=== PATIENT | female | born 1930 | race Caucasian/White ===

== ENCOUNTER 2018-08-17 12:09 | Inpatient (IN) | payer MEDICARE, BC, MEDICAID ==
[~2018-08-17] VITALS: Ht 160 cm; Wt 49.9 kg
--- NOTE | 2018-08-17 12:15 | NUR ---
PT BIBPA FROM SNF FOR INCREASING AGITATION, PT AAOX2-3, PT ON MONITOR, VSS, NAD NOTED, PENDING MD MILLER
[2018-08-17 12:36] LABS: NEUTROPHILS # (AUTO) 4.4 /CMM (1.8-8.9)
[2018-08-17 12:39] LABS: BASOPHILS % (AUTO) 0.7 % (0.0-2.0); EOSINOPHILS % (AUTO) 1.4 % (0.0-6.0); HEMATOCRIT 41 % (33-45); HEMOGLOBIN 13.7 g/dL (11.5-14.8); LYMPHOCYTES # (AUTO) 1.3 /CMM (0.8-4.8); LYMPHOCYTES % (AUTO) 20.1 % (20.0-44.0); MEAN CORPUSCULAR HGB CONC 34 g/dl (31.0-36.0); MEAN CORPUSCULAR VOLUME 86 fL (82-100); MONOCYTES # (AUTO) 0.6 /CMM (0.1-1.30); MONOCYTES % (AUTO) 9.3 % (2.0-12.0); NEUTROPHILS % (AUTO) 68.5 % (43.0-81.0); PLATELET COUNT (AUTO) 294 /CMM (150-450); RED BLOOD CELL COUNT(AUTO) 4.71 MIL/uL (4.0-5.2); WHITE BLOOD COUNT (AUTO) 6.4 K/uL (4.3-11.0)
[2018-08-17 12:41] LABS: CALCIUM, SERUM 8.8 mg/dL (8.5-10.1); CARBON DIOXIDE 31 mmol/L (21-32); CHLORIDE 106 mmol/L (98-107); GLUCOSE 86 mg/dL (74-106); SODIUM SERUM 144 mmol/L (136-145); UREA NITROGEN, BLOOD 15 mg/dL (7-18)
[2018-08-17 12:47] LABS: ALANINE AMINOTRANSFERASE 20 U/L (12-78); ALBUMIN 3.4 g/dL (3.4-5.0); ALCOHOL, BLOOD < 3 mg/dL (0-0); ALKALINE PHOSPHATASE 69 U/L (46-116); ASPARTATE AMINOTRANSFERASE 22 U/L (15-37); BILIRUBIN,DIRECT 0.1 mg/dL (0.0-0.2); BILIRUBIN,TOTAL 0.3 mg/dL (0.2-1.0); TOTAL PROTEIN, SERUM 7.3 g/dL (6.4-8.2)
[2018-08-17 12:48] LABS: ACETAMINOPHEN < 2 ug/ml (10-30); SALICYLATE 2.3 mg/dL (2.8-20.0)
--- NOTE | 2018-08-17 13:05 | NUR ---
JACK TAMP OPERATOR ART ETA 1 HR
[2018-08-17] MEDS ORDERED: ERGO500040 PO (13:52)
[2018-08-17] MEDS ORDERED: QUET25TA PO (13:56)
[2018-08-17] MEDS ORDERED: ACET325T53 PO (13:56)
[2018-08-17] MEDS ORDERED: AMIN30LI2 PO (13:56)
[2018-08-17] MEDS ORDERED: MULT-213 PO (13:56)
[2018-08-17] MEDS ORDERED: LACT1CAP69 PO (13:56)
[2018-08-17 14:50] LABS: APPEARANCE,URINE Clear (CLEAR); BILIRUBIN,URINE Negative (NEGATIVE); BLOOD, URINE Negative Ery/uL (NEGATIVE); COLOR,URINE Yellow (YELLOW); KETONES,URINE Negative (NEGATIVE); LEUKOCYTE ESTERASE ,URINE Trace (NEGATIVE); NITRITE, URINE Negative (NEGATIVE); PH,URINE 7.5 (5.0-8.0); PROTEIN,URINE Negative (NEGATIVE); UGLUCOSE Negative (NEGATIVE); UROBILINOGEN,URINE 0.2 EU/dL (0.2)
[2018-08-17 14:54] LABS: BACTERIA,URINE None seen /HPF (None Seen); SQUAMOUS EPITHELIAL CELL,UR Few /HPF (None Seen)
--- NOTE | 2018-08-17 15:03 | NUR ---
REPORT GIVEN TO OSEAS GENAO FOR NEELAM, PT WILL BE TRANSPORTED TO GPS
[2018-08-17] MEDS ORDERED: MAGNESIUM HYDROXIDE 30 ML UDC PO PRN (16:00)
[2018-08-17] MEDS ORDERED: MAG HYDROX/AL HYDROX/SIMETH 30 ML UDC PO PRN (16:00)
[2018-08-17] MEDS ORDERED: ACETAMINOPHEN 325 MG TABLET PO PRN ×2 (16:00→20:00)
--- NOTE | 2018-08-17 16:00 | NUR ---
GPS RN ADMITTING NOTE: PATIENT 87Y/O FEMALE ADMITTED FROM ER PRIOR FROM HOLIDAY MANNER PLACED ON 5150 HOLD FOR GD. PER HOLD PT PT TRYING RO STRIKE OTHERS,AGGRESSIVE AND OUTBURSTS OF ANGER. PT NON COMPLIANT WITH CARE. UPON FACE TO FACE ASSESSMENT PT A&OX1 , CONFUSED, DISORGANIZED, ANXIOUS . DR ORTIZ NOTIFIED WITH STANDING ORDER, DR JAZMYN GARCIA AWARE TO RECONCILED HOME MEDICATION. ALL BELONGINGS CHECKED FOR CONTRABAND. PT UNKEPT,DISHEVELED, SKIN CHECKED PLACED IN THE CHART. VSS.
[2018-08-17] MEDS ORDERED: Z GUARD REMEDY 2 OZ OINT TP PRN (19:00)
[2018-08-17 19:56] VITALS: BP 135/69
[2018-08-17] MEDS: LORAZEPAM 0.5 MG TABLET PO PRN (20:29)
[2018-08-18 07:20] LABS: CHOLESTEROL 173 mg/dL (<200); HDL CHOLESTEROL 49 mg/dL (40-60); LDL 112 mg/dL (0-99); TRIGLYCERIDES 94 mg/dL (30-150)
[2018-08-18 07:32] LABS: ALANINE AMINOTRANSFERASE 20 U/L (12-78); ALBUMIN 3.3 g/dL (3.4-5.0); ALKALINE PHOSPHATASE 69 U/L (46-116); ASPARTATE AMINOTRANSFERASE 22 U/L (15-37); BILIRUBIN,TOTAL 0.5 mg/dL (0.2-1.0); CARBON DIOXIDE 27 mmol/L (21-32); CHLORIDE 106 mmol/L (98-107); CREATININE 0.9 mg/dL (0.6-1.3); GLUCOSE 93 mg/dL (74-106); SODIUM SERUM 140 mmol/L (136-145); TOTAL PROTEIN, SERUM 7.2 g/dL (6.4-8.2); UREA NITROGEN, BLOOD 14 mg/dL (7-18)
[2018-08-18 08:00] VITALS: BP 127/63
[2018-08-18] MEDS: MULTIVIT W/MINERALS 1 TAB TABLET PO SCH (09:22)
[2018-08-18] MEDS: LACTOBACILLUS RHAMNOSUS GG 1 EACH CAP.SPRINK PO SCH ×2 (09:22→16:46)
[2018-08-18] MEDS: PROSOURCE / PROSTAT (PYXIS) 30 ML UDC PO SCH (09:23)
[2018-08-18] MEDS: LORAZEPAM 0.5 MG TABLET PO PRN (10:40)
--- NOTE | 2018-08-18 10:47 | NUR ---
GPS/RN-NOTES NOTED PATIENT WITH SCREAMING AND YELLING IN THE DAY ROOM, REDIRECTED AND REORIENTED PATIENT ATIVAN 0.5MG GIVEN PRN ORDER. ALL NEEDS ATTENDED And ANTICIPATED. WILL CONT. MONITORING Q15 MINS. FOR SAFETY AND BEHAVIOR.
--- NOTE | 2018-08-18 10:50 | NUR ---
WOUND CARE CONSULT: PT REFUSED SKIN ASSESSMENT AND NOTED TO BE AGITATED AND COMBATIVE AT TIMES. WILL SEE PT PT CONDITION PERMITS. DISCUSSED SKIN PROTECTION WITH NURSING STAFF. CURRENT ROGE SCORE IS 17.
[2018-08-18] MEDS ORDERED: Z GUARD REMEDY 2 OZ OINT TP PRN (11:00)
--- NOTE | 2018-08-18 12:03 | NUR ---
WOUND CARE CONSULT: PT PRESENTS WITH RASH TO PERINEUM, INNER BUTTOCKS AND THIGHS, PRESENT ON ADMISSION. RECOMMENDATIONS MADE FOR SKIN PROTECTION AND CARE. DISCUSSED WITH NURSING STAFF. PT PREVIOUSLY AGITATED AND COMBATIVE WHEN SKIN ASSESSMENT ATTEMPTED. RT LOWER LEG SKIN TEAR NOTED. RECOMMEND DPM CONSULT. DR STERLING NOTIFIED OF CONSULT REQUEST. WILL SEE PRN. PEREZ IN AGREEMENT WITH PLAN OF CARE. Addendum: 08/18/18 at 1205 by SARA PENN WNDNU Amended: Links added.
[2018-08-18] MEDS: DIVALPROEX SODIUM 125 MG CAP.SPRINK PO SCH ×2 (13:55→21:19)
--- NOTE | 2018-08-18 15:31 | NUR ---
Group Note: SW approached the pt to join the group but she stated that she wanted to remain in her room.
--- NOTE | 2018-08-18 15:37 | NUR ---
INNA contacted Eze ([phone]) from [facility] and inquired about the pt returning to their facility and she stated that there is a 7 day bed hold for the pt as of right now.
[2018-08-18 16:00] VITALS: BP 132/69
[2018-08-18] MEDS: CLOTRIMAZOLE 1% 15 GM TUBE TP SCH (16:48)
[2018-08-18] MEDS: Z GUARD REMEDY 2 OZ OINT TP SCH (16:48)
[2018-08-18 20:05] VITALS: BP 135/70
[2018-08-18] MEDS: QUETIAPINE FUMARATE 25 MG TABLET PO SCH (21:19)
[2018-08-19] MEDS: TEMAZEPAM 7.5 MG CAPSULE PO PRN ×2 (02:06→22:17)
[2018-08-19 08:00] VITALS: BP 110/64
[2018-08-19] MEDS: LACTOBACILLUS RHAMNOSUS GG 1 EACH CAP.SPRINK PO SCH ×2 (08:50→16:37)
[2018-08-19] MEDS: DIVALPROEX SODIUM 125 MG CAP.SPRINK PO SCH ×3 (08:50→20:22)
[2018-08-19] MEDS: MULTIVIT W/MINERALS 1 TAB TABLET PO SCH (09:06)
[2018-08-19] MEDS: Z GUARD REMEDY 2 OZ OINT TP SCH ×2 (09:07→16:34)
[2018-08-19] MEDS: CLOTRIMAZOLE 1% 15 GM TUBE TP SCH ×2 (09:07→16:34)
[2018-08-19] MEDS: NEOMY SULF/BACITRAC ZN/POLY 15 GM TUBE TP SCH (09:07)
[2018-08-19] MEDS: PROSOURCE / PROSTAT (PYXIS) 30 ML UDC PO SCH (09:38)
--- NOTE | 2018-08-19 15:40 | NUR ---
Group Note: SW prompted pt to attend group. Pt stated that she wanted to remain in her room.
[2018-08-19 16:00] VITALS: BP 148/95
--- NOTE | 2018-08-19 16:24 | NUR ---
INNA called pt's son, Mainor ([phone]), and discussed the initial discharge plan. He stated that he would like the pt to return to [facility]. INNA stated that she will keep him updated about the discharge and that will occur when the pt is more stable.
[2018-08-19 20:00] VITALS: BP 138/87
[2018-08-19] MEDS: LORAZEPAM 0.5 MG TABLET PO PRN ×2 (20:15→20:21)
[2018-08-19] MEDS: QUETIAPINE FUMARATE 25 MG TABLET PO SCH (22:01)
[2018-08-20 08:30] VITALS: BP 133/62
[2018-08-20] MEDS: DIVALPROEX SODIUM 125 MG CAP.SPRINK PO SCH ×2 (08:54→21:04)
[2018-08-20] MEDS: MULTIVIT W/MINERALS 1 TAB TABLET PO SCH (08:54)
[2018-08-20] MEDS: LACTOBACILLUS RHAMNOSUS GG 1 EACH CAP.SPRINK PO SCH ×2 (08:54→16:59)
[2018-08-20] MEDS: PROSOURCE / PROSTAT (PYXIS) 30 ML UDC PO SCH (08:55)
[2018-08-20] MEDS: NEOMY SULF/BACITRAC ZN/POLY 15 GM TUBE TP SCH (08:56)
[2018-08-20] MEDS: CLOTRIMAZOLE 1% 15 GM TUBE TP SCH ×2 (08:56→16:59)
[2018-08-20] MEDS: Z GUARD REMEDY 2 OZ OINT TP SCH ×2 (08:57→17:00)
--- NOTE | 2018-08-20 09:21 | NUR ---
Initial Discharge Plan: Pt currently resides at [facility] ([facility]) located at [address] [place] [id number]. Per pt's son and Eze ([phone]) at [facility], the pt will return to the facility. SW will work with the MD and the pt regarding appropriate discharge planning. SW will form a safe and proper discharge.
[2018-08-20 16:00] VITALS: BP 143/90
--- NOTE | 2018-08-20 16:00 | NUR ---
Group Note: SW approached the pt to join the group but she appeared to be in a manic mood and became angry. She stated that she did not want to leave her room or the sitter that was present in the room and asked the SW to leave.
[2018-08-20 20:00] VITALS: BP 148/86
[2018-08-20] MEDS: QUETIAPINE FUMARATE 25 MG TABLET PO SCH (21:04)
[2018-08-20] MEDS ORDERED: DIVALPROEX SODIUM 125 MG CAP.SPRINK PO SCH (22:00)
[2018-08-21] MEDS: LORAZEPAM 0.5 MG TABLET PO PRN ×2 (00:06→19:19)
[2018-08-21 08:00] VITALS: BP 124/85
[2018-08-21] MEDS: DIVALPROEX SODIUM 125 MG CAP.SPRINK PO SCH ×3 (08:47→20:20)
[2018-08-21] MEDS: LACTOBACILLUS RHAMNOSUS GG 1 EACH CAP.SPRINK PO SCH ×3 (08:47→16:54)
[2018-08-21] MEDS: MULTIVIT W/MINERALS 1 TAB TABLET PO SCH (08:47)
[2018-08-21] MEDS: PROSOURCE / PROSTAT (PYXIS) 30 ML UDC PO SCH (08:47)
[2018-08-21] MEDS: CLOTRIMAZOLE 1% 15 GM TUBE TP SCH ×2 (08:48→16:55)
[2018-08-21] MEDS: Z GUARD REMEDY 2 OZ OINT TP SCH ×2 (08:49→16:55)
[2018-08-21] MEDS: NEOMY SULF/BACITRAC ZN/POLY 15 GM TUBE TP SCH (08:49)
[2018-08-21 16:00] VITALS: BP 137/77
--- NOTE | 2018-08-21 19:20 | NUR ---
NOTED AGITATION, IRRITABILITY, LOUD VOICE, ATIVAN 0.5 MG TAB PO GIVEN.
[2018-08-21 20:00] VITALS: BP 136/71
--- NOTE | 2018-08-21 20:21 | NUR ---
DEPAKOTE 250 MG CAP PO GIVEN AT THIS TIME, PATIENT IS IN GOOD MOOD. DUE FOR 2199.
[2018-08-21] MEDS: QUETIAPINE FUMARATE 25 MG TABLET PO SCH (21:03)
[2018-08-21] MEDS: TEMAZEPAM 7.5 MG CAPSULE PO PRN (22:17)
[2018-08-22 08:00] VITALS: BP 119/98
[2018-08-22] MEDS: LACTOBACILLUS RHAMNOSUS GG 1 EACH CAP.SPRINK PO SCH ×2 (08:50→16:32)
[2018-08-22] MEDS: DIVALPROEX SODIUM 125 MG CAP.SPRINK PO SCH ×2 (08:50→21:09)
[2018-08-22] MEDS: MULTIVIT W/MINERALS 1 TAB TABLET PO SCH (08:51)
[2018-08-22] MEDS: PROSOURCE / PROSTAT (PYXIS) 30 ML UDC PO SCH (08:55)
[2018-08-22] MEDS: NEOMY SULF/BACITRAC ZN/POLY 15 GM TUBE TP SCH (09:01)
[2018-08-22] MEDS: CLOTRIMAZOLE 1% 15 GM TUBE TP SCH ×2 (09:01→16:34)
[2018-08-22] MEDS: Z GUARD REMEDY 2 OZ OINT TP SCH ×2 (09:02→16:39)
[2018-08-22 16:00] VITALS: BP 137/68
[2018-08-22] MEDS ORDERED: Z GUARD REMEDY 4 OZ OINT TP PRN (20:30)
[2018-08-22] MEDS: QUETIAPINE FUMARATE 25 MG TABLET PO SCH (21:09)
[2018-08-22 21:51] VITALS: BP 137/60
[2018-08-23] MEDS: ERGOCALCIFEROL (VITAMIN D 2) 50,000 UNIT CAPSULE PO SCH (00:03)
[2018-08-23] MEDS ORDERED: Z GUARD REMEDY 4 OZ OINT TP SCH (09:00)
[2018-08-23] MEDS: MULTIVIT W/MINERALS 1 TAB TABLET PO SCH (09:03)
[2018-08-23] MEDS: DIVALPROEX SODIUM 125 MG CAP.SPRINK PO SCH ×2 (09:03→21:03)
[2018-08-23] MEDS: LACTOBACILLUS RHAMNOSUS GG 1 EACH CAP.SPRINK PO SCH ×2 (09:03→17:10)
[2018-08-23] MEDS: PROSOURCE / PROSTAT (PYXIS) 30 ML UDC PO SCH (09:03)
[2018-08-23] MEDS: NEOMY SULF/BACITRAC ZN/POLY 15 GM TUBE TP SCH (09:03)
[2018-08-23] MEDS: CLOTRIMAZOLE 1% 15 GM TUBE TP SCH ×2 (09:04→17:10)
[2018-08-23] MEDS: Z GUARD REMEDY 2 OZ OINT TP SCH ×2 (09:04→17:10)
[2018-08-23 09:23] VITALS: BP 143/70
--- NOTE | 2018-08-23 14:15 | NUR ---
Group Note: SW encouraged the pt to participate in group but she stated that she did not want to.
[2018-08-23 16:00] VITALS: BP 117/76
[2018-08-23 20:55] VITALS: BP 159/48
[2018-08-23] MEDS: QUETIAPINE FUMARATE 25 MG TABLET PO SCH (21:03)
[2018-08-23] MEDS: LORAZEPAM 0.5 MG TABLET PO PRN (21:19)
[2018-08-23] MEDS: TEMAZEPAM 7.5 MG CAPSULE PO PRN (22:00)
[2018-08-23 22:30] VITALS: BP 142/87
[2018-08-24 07:03] LABS: BASOPHILS % (AUTO) 0.4 % (0.0-2.0); EOSINOPHILS % (AUTO) 1.9 % (0.0-6.0); HEMATOCRIT 40 % (33-45); HEMOGLOBIN 13.5 g/dL (11.5-14.8); LYMPHOCYTES # (AUTO) 1.4 /CMM (0.8-4.8); LYMPHOCYTES % (AUTO) 22.3 % (20.0-44.0); MEAN CORPUSCULAR HGB CONC 34 g/dl (31.0-36.0); MEAN CORPUSCULAR VOLUME 86 fL (82-100); MONOCYTES # (AUTO) 0.6 /CMM (0.1-1.30); MONOCYTES % (AUTO) 8.8 % (2.0-12.0); NEUTROPHILS # (AUTO) 4.2 /CMM (1.8-8.9); NEUTROPHILS % (AUTO) 66.6 % (43.0-81.0); PLATELET COUNT (AUTO) 269 /CMM (150-450); RED BLOOD CELL COUNT(AUTO) 4.69 MIL/uL (4.0-5.2); WHITE BLOOD COUNT (AUTO) 6.3 K/uL (4.3-11.0)
[2018-08-24 07:19] LABS: VALPROIC ACID 23 ug/mL (50-100)
[2018-08-24 07:27] LABS: ALANINE AMINOTRANSFERASE 16 U/L (12-78); ALKALINE PHOSPHATASE 66 U/L (46-116); ASPARTATE AMINOTRANSFERASE 17 U/L (15-37); BILIRUBIN,TOTAL 0.4 mg/dL (0.2-1.0); CARBON DIOXIDE 26 mmol/L (21-32); CHLORIDE 107 mmol/L (98-107); CREATININE 0.9 mg/dL (0.6-1.3); GLUCOSE 94 mg/dL (74-106); POTASSIUM 4.3 mmol/L (3.5-5.1); SODIUM SERUM 141 mmol/L (136-145); TOTAL PROTEIN, SERUM 7.2 g/dL (6.4-8.2); UREA NITROGEN, BLOOD 17 mg/dL (7-18)
[2018-08-24 08:00] VITALS: BP 106/76
[2018-08-24] MEDS ORDERED: DIVALPROEX SODIUM 125 MG CAP.SPRINK PO SCH (08:00)
[2018-08-24] MEDS: MULTIVIT W/MINERALS 1 TAB TABLET PO SCH (10:04)
[2018-08-24] MEDS: PROSOURCE / PROSTAT (PYXIS) 30 ML UDC PO SCH (10:04)
[2018-08-24] MEDS: LACTOBACILLUS RHAMNOSUS GG 1 EACH CAP.SPRINK PO SCH ×2 (10:04→17:22)
[2018-08-24] MEDS: Z GUARD REMEDY 2 OZ OINT TP SCH ×2 (10:05→17:21)
[2018-08-24] MEDS: CLOTRIMAZOLE 1% 15 GM TUBE TP SCH ×2 (10:05→17:22)
--- NOTE | 2018-08-24 10:30 | NUR ---
AMBLING ABOUT UNIT,CONFUSED,MED COMPLIANT,TAKES MEDS SLOWLY AND CRUSHED.
[2018-08-24] MEDS: DIVALPROEX SODIUM 125 MG CAP.SPRINK PO SCH ×3 (13:25→21:08)
[2018-08-24 16:00] VITALS: BP 132/85
--- NOTE | 2018-08-24 16:43 | NUR ---
NO CHESTER IN STATUS.
[2018-08-24] MEDS: NEOMY SULF/BACITRAC ZN/POLY 15 GM TUBE TP SCH (17:21)
[2018-08-24 20:00] VITALS: BP 157/84
[2018-08-24] MEDS: QUETIAPINE FUMARATE 25 MG TABLET PO SCH (21:09)
[2018-08-24] MEDS: TEMAZEPAM 7.5 MG CAPSULE PO PRN (21:43)
[2018-08-24 22:10] VITALS: BP 136/85
[2018-08-25 08:00] VITALS: BP 107/67
[2018-08-25] MEDS: LACTOBACILLUS RHAMNOSUS GG 1 EACH CAP.SPRINK PO SCH ×2 (09:00→16:26)
[2018-08-25] MEDS: PROSOURCE / PROSTAT (PYXIS) 30 ML UDC PO SCH (09:00)
[2018-08-25] MEDS: MULTIVIT W/MINERALS 1 TAB TABLET PO SCH (09:00)
[2018-08-25] MEDS: DIVALPROEX SODIUM 125 MG CAP.SPRINK PO SCH ×4 (09:00→21:13)
[2018-08-25] MEDS: Z GUARD REMEDY 2 OZ OINT TP SCH ×2 (09:01→16:18)
[2018-08-25] MEDS: NEOMY SULF/BACITRAC ZN/POLY 15 GM TUBE TP SCH (09:01)
[2018-08-25] MEDS: CLOTRIMAZOLE 1% 15 GM TUBE TP SCH ×2 (09:01→16:18)
--- NOTE | 2018-08-25 14:10 | NUR ---
Group Note: Pt was encouraged by the SW to join group but the pt stated that she does not need group.
--- NOTE | 2018-08-25 14:19 | NUR ---
INNA called pt's son, Mainor ([phone]), and left a voicemail stating that the pt is going to be discharged on Thursday back to [facility].
[2018-08-25 16:00] VITALS: BP 112/66
[2018-08-25 20:14] VITALS: BP 95/46
[2018-08-25] MEDS: QUETIAPINE FUMARATE 25 MG TABLET PO SCH (21:13)
[2018-08-25 22:30] VITALS: BP 102/65
[2018-08-25 23:00] VITALS: BP 104/66
[2018-08-26] MEDS: LORAZEPAM 0.5 MG TABLET PO PRN ×2 (00:34→23:38)
[2018-08-26 08:21] VITALS: BP 129/52
[2018-08-26] MEDS: MULTIVIT W/MINERALS 1 TAB TABLET PO SCH (08:25)
[2018-08-26] MEDS: LACTOBACILLUS RHAMNOSUS GG 1 EACH CAP.SPRINK PO SCH ×2 (08:25→16:13)
[2018-08-26] MEDS: DIVALPROEX SODIUM 125 MG CAP.SPRINK PO SCH ×4 (08:25→21:42)
[2018-08-26] MEDS: PROSOURCE / PROSTAT (PYXIS) 30 ML UDC PO SCH (08:26)
[2018-08-26] MEDS: Z GUARD REMEDY 2 OZ OINT TP SCH ×2 (08:34→16:14)
[2018-08-26] MEDS: CLOTRIMAZOLE 1% 15 GM TUBE TP SCH ×2 (08:34→16:14)
[2018-08-26] MEDS: NEOMY SULF/BACITRAC ZN/POLY 15 GM TUBE TP SCH (08:34)
--- NOTE | 2018-08-26 12:55 | NUR ---
INNA called pt's son, Mainor ([phone]), and informed him that the pt cannot return to [facility] the following day because [facility] has paused admissions and discharges due to her flu outbreak. Pts son stated that he does not want to move the pt to a sister facility and then move her back to [facility] because it could disrupt the pt.
--- NOTE | 2018-08-26 12:57 | NUR ---
INNA faxed a discharge referral to [facility] to the fax number: [phone].
[2018-08-26 16:23] VITALS: BP 139/75
[2018-08-26 20:00] VITALS: BP 154/96
--- NOTE | 2018-08-26 20:11 | NUR ---
GPS RN NOTES: PT. TRANSFER TO OVERFLOW IN MED SURG -2 /ROOM # 209 -B , IN STABLE CONDTION , NO ACUTE DISTRESS NOTED, REPORT GIVEN TO REGINALDO GENAO . AND PT. TRANSFER WITH CHART IESHA WESTBROOK WITH WNL, PT. CONTINUITY WITH CARE
[2018-08-26] MEDS: QUETIAPINE FUMARATE 25 MG TABLET PO SCH (21:42)
--- NOTE | 2018-08-27 06:30 | NUR ---
PATIENT AMBULATING AROUND ROOM FOLLOWED BY SITTER. RESPIRATIONS EVEN. DENIES ANY PAIN AT THIS TIME. DUE MEDS GIVEN WITH NO ASE NOTED. NEEDS ATTENDED. KEPT CLEAN, DRY, AND COMFORTABLE. SAFETY PRECAUTIONS AND COMFORT MEASURES IN PLACE. WILL GIVE REPORT TO DAY SHIFT FOR CONTINUITY OF CARE.
[2018-08-27] MEDS: LORAZEPAM 0.5 MG TABLET PO PRN (06:31)
[2018-08-27 06:46] LABS: BASOPHILS % (AUTO) 0.3 % (0.0-2.0); EOSINOPHILS % (AUTO) 1.2 % (0.0-6.0); HEMATOCRIT 38 % (33-45); HEMOGLOBIN 12.7 g/dL (11.5-14.8); LYMPHOCYTES # (AUTO) 1.2 /CMM (0.8-4.8); LYMPHOCYTES % (AUTO) 13.1 % (20.0-44.0); MEAN CORPUSCULAR HGB CONC 34 g/dl (31.0-36.0); MEAN CORPUSCULAR VOLUME 85 fL (82-100); MONOCYTES # (AUTO) 0.9 /CMM (0.1-1.30); MONOCYTES % (AUTO) 9.5 % (2.0-12.0); NEUTROPHILS % (AUTO) 75.9 % (43.0-81.0); PLATELET COUNT (AUTO) 292 /CMM (150-450); RED BLOOD CELL COUNT(AUTO) 4.43 MIL/uL (4.0-5.2); WHITE BLOOD COUNT (AUTO) 9.2 K/uL (4.3-11.0)
[2018-08-27 06:58] LABS: ALANINE AMINOTRANSFERASE 15 U/L (12-78); ALKALINE PHOSPHATASE 63 U/L (46-116); ASPARTATE AMINOTRANSFERASE 14 U/L (15-37); BILIRUBIN,TOTAL 0.3 mg/dL (0.2-1.0); CALCIUM, SERUM 8.6 mg/dL (8.5-10.1); CARBON DIOXIDE 29 mmol/L (21-32); CHLORIDE 104 mmol/L (98-107); GLUCOSE 89 mg/dL (74-106); POTASSIUM 4.2 mmol/L (3.5-5.1); SODIUM SERUM 140 mmol/L (136-145); TOTAL PROTEIN, SERUM 6.7 g/dL (6.4-8.2); UREA NITROGEN, BLOOD 29 mg/dL (7-18)
[2018-08-27] MEDS: LACTOBACILLUS RHAMNOSUS GG 1 EACH CAP.SPRINK PO SCH ×2 (08:36→17:19)
[2018-08-27] MEDS: MULTIVIT W/MINERALS 1 TAB TABLET PO SCH (08:36)
[2018-08-27] MEDS: DIVALPROEX SODIUM 125 MG CAP.SPRINK PO SCH ×4 (08:36→22:25)
[2018-08-27] MEDS: PROSOURCE / PROSTAT (PYXIS) 30 ML UDC PO SCH (08:36)
[2018-08-27] MEDS: CLOTRIMAZOLE 1% 15 GM TUBE TP SCH ×2 (08:37→17:19)
[2018-08-27] MEDS: Z GUARD REMEDY 2 OZ OINT TP SCH ×2 (08:38→17:19)
--- NOTE | 2018-08-27 08:55 | NUR ---
INNA called pt's son, Mainor ([phone]), and informed him that the pt has to be discharged today due to her being cleared for discharge. INNA stated that [facility] is accepting the pt back but the facility was put on hold for admissions by the [facility] Public [facility]. INNA explained that it is unclear when the facility will be able to accept pts back. INNA stated [facility] has accepted the pt and that the pt will be transferred back to [facility] when everything is clear. Pts son accepted the discharge and was provided with the address of the facility and the phone number.
--- NOTE | 2018-08-27 09:00 | NUR ---
RN-CO: Dr Mesa ordered to discontinue hold and discharge patient, noted.
[2018-08-27] MEDS: NEOMY SULF/BACITRAC ZN/POLY 15 GM TUBE TP SCH (11:54)
[2018-08-27 15:33] LABS: APPEARANCE,URINE CLOUDY (CLEAR); BILIRUBIN,URINE NEGATIVE (NEGATIVE); BLOOD, URINE TRACE Ery/uL (NEGATIVE); COLOR,URINE YELLOW (YELLOW); KETONES,URINE NEGATIVE (NEGATIVE); LEUKOCYTE ESTERASE ,URINE 2+ (NEGATIVE); NITRITE, URINE POSITIVE (NEGATIVE); PROTEIN,URINE TRACE mg/dl (NEGATIVE); UGLUCOSE NEGATIVE (NEGATIVE); UROBILINOGEN,URINE 0.2 EU/dL (0.2)
--- NOTE | 2018-08-27 16:26 | NUR ---
Discharge Note: Pt was discharged to [facility] ([facility]) located at [address] [place] [address] ([phone]). Pt was transported via ambulance at 5PM. Pts son, Mainor ([phone]), was made aware of this discharge. Upon discharge, the pt appeared to be in a manic mood and presented as distressed. Pt appeared to be confused. Pt denied both suicidal and homicidal ideation as well as auditory and visual hallucinations. Pt will be under the care of her psychiatrist, Dr. Mesa, located at [address] [address]; and her wood drilling machine operator, Dr. Ashton, located at [address] [place] [address]; . Addendum: 08/31/18 at 1234 by OCTAVIO KEITH PT WAS NOT DISCHARGED DUE TO AN UTI.
[2018-08-27 16:30] LABS: BACTERIA,URINE 3+ /HPF (None Seen); SQUAMOUS EPITHELIAL CELL,UR Few /HPF (None Seen); WBC,URINE 51-80 /HPF (0-3)
--- NOTE | 2018-08-27 17:36 | NUR ---
NOTIFIED ZAHEER PRAJAPATI REGARDING URINALYSIS RESULT.
--- NOTE | 2018-08-27 17:38 | NUR ---
NOTIFIED METER TESTER POLYPHASE FAISAL STOCK REGARDING URINALYSIS RESULT. Addendum: 08/27/18 at 2015 by LUCIEN ATKINSON RN DISREGARD ABOVE NOTES WRONG PATIENT
--- NOTE | 2018-08-27 17:41 | NUR ---
RN-CO: Per Dr Mesa, cancel discharge and continue hold. Patient noted with UTI. Needs to be treated in the hospital.
--- NOTE | 2018-08-27 19:10 | NUR ---
PATIENT TRANSFER TO ROOM [facility] IN STABLE CONDITION WITH SITTER. ALL BELONGINGS BROUGHT WITH THE PATIENT. Addendum: 08/27/18 at 2017 by LUCIEN ATKINSON RN PATIENT TRANSFER TO ROOM [facility] IN STABLE CONDITION WITH SITTER. ALL BELONGINGS BROUGHT WITH THE PATIENT. NEEDS ATTENDED AND ANTICIPATED. DENIES SI/HI. DENIES AUDITORY AND VISUAL HALLUCINATION
--- NOTE | 2018-08-27 19:15 | NUR ---
RN NOTES: TRANSFER BACK TO ROOM 218-1 FROM OVERFLOW OF MS-2 ROOM 209-B IN STABLE CONDITION. ALL BELONGINGS AND CHART BROUGHT IN WITH THE PATIENT. NEEDS ATTENDED AND ANTICIPATED. DENIES SI/HI. MONITOR Q 15 MINUTED FOR BEHAVIOR AND SAFETY. WILL CONTINUE TO MONITOR FOR SIGH OF HALLUCINATION, AGGRESSIVE BEHAVIOR AND AGITATION.FALL,SAFETY AND ASPIRATION BEHAVIOR OBSERVE.
[2018-08-27 20:00] VITALS: BP 156/80
--- NOTE | 2018-08-27 21:36 | NUR ---
RN NOTES: -DUE ANTIBIOTIC/PO DUE AT 2100, PATIENT STRONGLY REFUSED TO TAKE, WILL TRY TO OFFER AGAIN LATER. -AT 2130 TRIED TO OFFER MEDICATION AGAIN ALONG WITH OTHER MEDICATION, STILL SHE STRONGLY REFUSED, EXPLAINED TO HER SHE SAID SHE JUST WANT TO SLEEP, WILL TRY AGAIN ONCE SHE CALM DOWN.
[2018-08-27] MEDS: CEPHALEXIN MONOHYDRATE 500 MG CAPSULE PO SCH (22:24)
[2018-08-27] MEDS: QUETIAPINE FUMARATE 25 MG TABLET PO SCH (22:25)
--- NOTE | 2018-08-27 22:26 | NUR ---
RN NOTES: ABLE TO CONVINCE TO TAKE HER MEDICATION, SHE WAS ABLE TO SWALLOW, THEN SHE SPIT OUT SOME OF THEM, GIVEN APPLE JUICE AND AFTER SOMETIME, SHE CALM DOWN AND GO TO SLEEP, FALL,SAFETY AND ASPIRATION OBSERVED.
--- NOTE | 2018-08-27 22:44 | NUR ---
RN NOTES: ASSISTED TO THE BATHROOM 2X,NOTED WITH URINARY FREQUENCY SECONDARY TO HER INFECTION.CALLS AND NEEDS ATTENDED.
--- NOTE | 2018-08-27 23:04 | NUR ---
RN NOTES: KEPT ON CLOSE VISUAL CHECK, TRYING TO SLEEP NOW,BED LOW AND LOCKED.
[2018-08-28 08:00] VITALS: BP 158/55
[2018-08-28] MEDS: DIVALPROEX SODIUM 125 MG CAP.SPRINK PO SCH ×4 (09:09→21:05)
[2018-08-28] MEDS: LACTOBACILLUS RHAMNOSUS GG 1 EACH CAP.SPRINK PO SCH ×2 (09:09→17:19)
[2018-08-28] MEDS: MULTIVIT W/MINERALS 1 TAB TABLET PO SCH (09:09)
[2018-08-28] MEDS: CLOTRIMAZOLE 1% 15 GM TUBE TP SCH ×2 (09:09→17:21)
[2018-08-28] MEDS: CEPHALEXIN MONOHYDRATE 500 MG CAPSULE PO SCH ×2 (09:09→21:04)
[2018-08-28] MEDS: NEOMY SULF/BACITRAC ZN/POLY 15 GM TUBE TP SCH (09:10)
[2018-08-28] MEDS: Z GUARD REMEDY 2 OZ OINT TP SCH ×2 (09:10→17:22)
[2018-08-28] MEDS: PROSOURCE / PROSTAT (PYXIS) 30 ML UDC PO SCH (09:11)
--- NOTE | 2018-08-28 14:39 | NUR ---
Vivi MEEKS AUDITING CONTROL CLERK AND PSYCHIATRIST IN TO SEE PT.
[2018-08-28 16:00] VITALS: BP 121/64
[2018-08-28 20:42] VITALS: BP 138/74
[2018-08-28] MEDS: QUETIAPINE FUMARATE 25 MG TABLET PO SCH (21:05)
[2018-08-29 08:00] VITALS: BP 156/77
[2018-08-29] MEDS: DIVALPROEX SODIUM 125 MG CAP.SPRINK PO SCH ×4 (08:03→21:09)
[2018-08-29] MEDS: CEPHALEXIN MONOHYDRATE 500 MG CAPSULE PO SCH ×2 (08:03→20:40)
[2018-08-29] MEDS: LACTOBACILLUS RHAMNOSUS GG 1 EACH CAP.SPRINK PO SCH ×2 (08:03→16:32)
[2018-08-29] MEDS: MULTIVIT W/MINERALS 1 TAB TABLET PO SCH (08:03)
[2018-08-29] MEDS: Z GUARD REMEDY 2 OZ OINT TP SCH ×2 (08:06→16:33)
[2018-08-29] MEDS: CLOTRIMAZOLE 1% 15 GM TUBE TP SCH ×2 (08:06→16:33)
[2018-08-29] MEDS: NEOMY SULF/BACITRAC ZN/POLY 15 GM TUBE TP SCH (08:06)
[2018-08-29] MEDS: PROSOURCE / PROSTAT (PYXIS) 30 ML UDC PO SCH (09:00)
[2018-08-29 16:00] VITALS: BP 149/76
--- NOTE | 2018-08-29 18:04 | NUR ---
RN GPS NOTES PT AWAKE, ALERT, VERBALLY RESPONSIVE, NOT IN PAIN OR DISTRESS, WITH PERIODS OF CONFUSION AND BEING FORGETFUL, COMPLIANT WITH MEDS AND INTERVENTIONS, SAFETY PRECAUTIONS OBSERVED, TOLERATES DIET WELL.
[2018-08-29 20:15] VITALS: BP 103/67
[2018-08-29] MEDS: QUETIAPINE FUMARATE 25 MG TABLET PO SCH (21:09)
[2018-08-30] MEDS: ERGOCALCIFEROL (VITAMIN D 2) 50,000 UNIT CAPSULE PO SCH (00:31)
[2018-08-30 08:00] VITALS: BP 120/58
[2018-08-30] MEDS: DIVALPROEX SODIUM 125 MG CAP.SPRINK PO SCH ×4 (08:50→21:17)
[2018-08-30] MEDS: LACTOBACILLUS RHAMNOSUS GG 1 EACH CAP.SPRINK PO SCH ×2 (08:51→17:08)
[2018-08-30] MEDS: MULTIVIT W/MINERALS 1 TAB TABLET PO SCH (08:51)
[2018-08-30] MEDS: CEPHALEXIN MONOHYDRATE 500 MG CAPSULE PO SCH ×2 (08:52→21:18)
[2018-08-30] MEDS: Z GUARD REMEDY 2 OZ OINT TP SCH ×2 (09:32→17:08)
[2018-08-30] MEDS: PROSOURCE / PROSTAT (PYXIS) 30 ML UDC PO SCH (09:32)
[2018-08-30] MEDS: CLOTRIMAZOLE 1% 15 GM TUBE TP SCH ×2 (09:33→17:13)
[2018-08-30] MEDS: NEOMY SULF/BACITRAC ZN/POLY 15 GM TUBE TP SCH (09:33)
[2018-08-30 16:00] VITALS: BP 130/55
--- NOTE | 2018-08-30 19:40 | NUR ---
GPS RN NOTE: PATIENT RESTING IN BED, NO ACUTE DISTRESS NOTED. BREATHING EVEN AND UNLABORED, NO SOB NOTED. PATIENT CALM AND COOPERATIVE AT THIS TIME. WILL CONTINUE TO MONITOR.
[2018-08-30 20:23] VITALS: BP 144/77
[2018-08-30] MEDS: QUETIAPINE FUMARATE 25 MG TABLET PO SCH (21:17)
[2018-08-31 08:00] VITALS: BP 141/77
[2018-08-31] MEDS: MULTIVIT W/MINERALS 1 TAB TABLET PO SCH (08:36)
[2018-08-31] MEDS: DIVALPROEX SODIUM 125 MG CAP.SPRINK PO SCH ×2 (08:36→12:56)
[2018-08-31] MEDS: LACTOBACILLUS RHAMNOSUS GG 1 EACH CAP.SPRINK PO SCH (08:36)
[2018-08-31] MEDS: CEPHALEXIN MONOHYDRATE 500 MG CAPSULE PO SCH (08:36)
[2018-08-31] MEDS: CLOTRIMAZOLE 1% 15 GM TUBE TP SCH (08:37)
[2018-08-31] MEDS: NEOMY SULF/BACITRAC ZN/POLY 15 GM TUBE TP SCH (08:39)
[2018-08-31] MEDS: Z GUARD REMEDY 2 OZ OINT TP SCH (08:39)
[2018-08-31] MEDS: PROSOURCE / PROSTAT (PYXIS) 30 ML UDC PO SCH (09:00)
--- NOTE | 2018-08-31 12:34 | NUR ---
INNA faxed over a clearance and a medication compliance packet to [facility] to the fax number: [phone].
--- NOTE | 2018-08-31 12:36 | NUR ---
INNA called pt's son, Mainor ([phone]), and informed him that the pt was not discharged on Thursday due to a UTI that showed up in the results. He stated that no one had informed him about the pt's discharge being cancelled. INNA apologized and stated that the pt is going to be discharged today. Pts son agreed to the discharge plan.
--- NOTE | 2018-08-31 15:11 | NUR ---
Discharge Note: Pt was discharged to [facility] ([facility]) located at [address] [place] [address] ([phone]). Pt was transported via ambulance at 3PM. Pts son, Mainor ([phone]), was made aware of this discharge. Upon discharge, the pt appeared to be in a manic mood and presented as distressed. Pt appeared to be confused. Pt denied both suicidal and homicidal ideation as well as auditory and visual hallucinations. Pt will be under the care of her psychiatrist, Dr. Mesa, located at [address] [address]; and her check writer salesperson, Dr. Ashton, located at [address] [place] [address]; .
--- NOTE | 2018-08-31 15:55 | NUR ---
GPS/RN PT D/C TO [facility] ([facility]) located at [address] [place] [address] ([phone]) WITH REPORT GIVEN TO ALESSIO GENAO. MEDS LIST FAXED PER ALESSIO'S REQUEST. BELONGING RETURNED EXIT CARE PROVIDED. PT REFUSED PICTURES ON DISCHARGE AND TO SIGN D/C FORMS. NO SI OR HI AT THE TIME OF D/C
--- NOTE | 2018-08-31 16:24 | NUR ---
INNA called pt's son, Mainor ([phone]), and informed him that the pt was discharged.
[2018-08-31 16:26] VITALS: BP 123/73
== END 2018-08-31 16:30 | DRG 885 ==
LOC: ER 12:09 → GPS 13:56 → GPSOV2 08-26 19:51 → GPS 08-27 19:34
PROVIDERS: ADMIT Psychiatry & Neurology Psychosomatic Medicine; ATTEND Internal Medicine
DX: F25.0 Schizoaffective disorder, bipolar type (principal); F01.50 Vascular dementia, unspecified severity, without behavioral disturbance, psychotic disturbance, mood disturbance, and anxiety; E43 Unspecified severe protein-calorie malnutrition; Z68.1 Body mass index [BMI] 19.9 or less, adult; L97.819 Non-pressure chronic ulcer of other part of right lower leg with unspecified severity; N39.0 Urinary tract infection, site not specified; F29 Unspecified psychosis not due to a substance or known physiological condition; I10 Essential (primary) hypertension; E88.09 Other disorders of plasma-protein metabolism, not elsewhere classified; S80.11XA Contusion of right lower leg, initial encounter; X58.XXXA Exposure to other specified factors, initial encounter; Y93.9 Activity, unspecified; Y92.129 Unspecified place in nursing home as the place of occurrence of the external cause
CPT/HCPCS: 36415; 80048-TC; 80053-TC; 80061-TC; 80076-TC; 80164-TC; 80305; 81000-TC; 85025-TC; 87081-TC; 87086-TC; 97116-TC; 97530-TC; G0480